=== PATIENT | male | born 1980 | race Caucasian/White ===

== ENCOUNTER 2019-03-07 19:34 | Emergency (ER) | payer OTHER ==
[2019-03-07] MEDS: Ketorolac 60 MG/2 ML SDV IM ONE (19:58)
[2019-03-07] MEDS ORDERED: Acetaminophen/HYDROcodone 325-5 MG Tab ONE (20:00)
--- NOTE | 2019-03-07 20:00 | EDM.PDOC ---
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 States no previous injury to the shoulder in the past. States severe pain noted. 18:50 is time of this injury. Pt is alert and states no LOC and no injury to head. Pain with palpation to left chest/ribs and anterior chest with palpation. 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 - Related Data Allergies Allergy/AdvReac Type Severity Reaction Status Date / Time No Known Allergies Allergy Verified 03/07/19 19:45 Past Medical History - Past Health History Medical/Surgical History: Denies Medical/Surgical History Social & Family History - Tobacco Use Smoking Status *Q: Never Smoker Review of Systems - Review of Systems Review Of Systems: See Below Constitutional: Reports: No Symptoms Respiratory: Reports: No Symptoms Cardiovascular: Reports: No Symptoms Musculoskeletal: Reports: Shoulder Pain Skin: Reports: No Symptoms Neurological: Reports: No Symptoms Psychiatric: Reports: No Symptoms ED EXAM, GENERAL - Physical Exam Exam: See Below Exam Limited By: No Limitations General Appearance: Alert, No Apparent Distress Head: Atraumatic, Normocephalic Neck: Normal Inspection, Supple, Non-Tender Respiratory/Chest: No Respiratory Distress Cardiovascular: Regular Rate, Rhythm Extremities: Limited Range of Motion (to left shoulder, limit to shoulder height and increase in pain to behind head.) Neurological: Alert, Oriented, Normal Cognition Psychiatric: Normal Affect, Normal Mood Skin Exam: Warm, Dry, Normal Color. No: Ecchymosis Course - Vital Signs Last Recorded V/S: Last Vital Signs Temp 97.3 F 03/07/19 19:46 Pulse 89 03/07/19 19:46 Resp 16 03/07/19 19:46 BP 150/90 H 03/07/19 19:46 Pulse Ox 99 03/07/19 19:46 - Orders/Labs/Meds Orders: Active Orders 24 hr Category Date Time Status Shoulder Comp Lt [CR] Stat Exams 03/07/19 19:54 Ordered Meds: Medications Discontinued Medications Generic Name Dose Route Start Last Admin Trade Name Freq PRN Reason Stop Dose Admin Ketorolac Tromethamine 60 mg 03/07/19 19:53 03/07/19 19:58 Toradol IM 03/07/19 19:54 60 mg ONETIME ONE Administration - Re-Assessments/Exams Free Text/Narrative Re-Assessment/Exam: 03/07/19 20:54 X-ray of left shoulder completed and no fracture noted. Radiology read is pending. Recommend use of ice to area 5x/day. Sling to arm for support. Tylenol or Ibuprofen for relief of pain. No Ibuprofen for about 8 hour after the Toradol IM. Vicoden 1 tablet q 6-8 hour prn. RTC next week if pain increase or persists. Departure - Departure Time of Disposition: 20:21 Disposition: Home, Self-Care 01 Condition: Good Clinical Impression: Left shoulder strain - Discharge Information *PRESCRIPTION DRUG MONITORING PROGRAM REVIEWED*: Not Applicable *COPY OF PRESCRIPTION DRUG MONITORING REPORT IN PATIENT DONALDO: Not Applicable Instructions: Shoulder Pain, RICE Therapy for Routine Care of Injuries, Easy-to -Read, Shoulder Sprain Forms: ED Department Discharge Additional Instructions: Discharge home. Wear sling to left arm to help rest the left shoulder as you need. Vicodin 1 tablet by mouth every 6-8 hours as needed for pain. Ibuprofen 600mg by mouth every 8 hours as needed for pain. Follow up in the clinic as needed. - My Orders Last 24 Hours: My Active Orders 03/07/19 19:54 Shoulder Comp Lt [CR] Stat - Assessment/Plan Last 24 Hours: My Active Orders 03/07/19 19:54 Shoulder Comp Lt [CR] Stat Plan: X-ray of left shoulder completed and no fracture noted. Radiology read is pending. Recommend use of ice to area 5x/day. Sling to arm for support. Tylenol or Ibuprofen for relief of pain. No Ibuprofen for about 8 hour after the Toradol IM. Vicoden 1 tablet q 6-8 hour prn. RTC next week if pain increase or persists.
--- NOTE | 2019-03-08 11:36 | CR ---
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 No acute fracture or dislocation. No lytic or blastic bone lesions. [id number] [facility]
== END 2019-03-07 20:25 | disposition home or self-care (01) ==
LOC: MERGE 19:34 → LB.ED 19:34
DX: S46.912A Strain of unspecified muscle, fascia and tendon at shoulder and upper arm level, left arm, initial encounter (principal); X50.9XXA Other and unspecified overexertion or strenuous movements or postures, initial encounter; Y99.0 Civilian activity done for income or pay
CPT/HCPCS: 73030-LT; 96372; 99283-25; A9270-GY; J1885